=== PATIENT | male | born 1955 ===

== ENCOUNTER 2016-08-27 22:09 | Emergency (ER) | payer SELFPAY ==
[~2016-08-27] VITALS: Ht 165.1 cm; Wt 69.0 kg
[2016-08-27 22:18] VITALS: Ht 165.1 cm; Wt 69.0 kg
== END 2016-08-28 01:03 | disposition left against medical advice (07) ==
LOC: FTE 22:09
DX: Z53.21 Procedure and treatment not carried out due to patient leaving prior to being seen by health care provider (principal)